=== PATIENT | male | born 1965 | race Caucasian/White ===

== ENCOUNTER 2020-12-31 14:11 | Outpatient (REF) | payer MEDICARE, MEDICAID, SELFPAY | END 2020-12-31 14:12 | disposition home or self-care (01) | LOC: HO.LAB 14:11 | PROVIDERS: Visit Provider Otolaryngology | DX: T78.2XXA Anaphylactic shock, unspecified, initial encounter (principal) | CPT/HCPCS: 36415; 82785; 86003 ==